=== PATIENT | female | born 1990 | race Caucasian/White ===

== ENCOUNTER 2019-08-01 17:15 | Emergency (ER) | payer OTHER ==
[2019-08-01 17:56] LABS: BLOOD UREA NITROGEN,BUN 13 mg/dL (7.0-18.0); CARBON DIOXIDE,CO2 26.5 mmol/L (21.0-32.0); CHLORIDE,CL 103 mmol/L (98-107); GLUCOSE RANDOM 93 mg/dL (74-106); POTASSIUM,K 3.4 mmol/L (3.5-5.1); SODIUM,NA 140 mmol/L (136-145)
--- NOTE | 2019-08-01 18:19 | EDM.PDOC ---
ED HPI GENERAL MEDICAL PROBLEM - General Chief Complaint: Chest Pain Stated Complaint: DIZZY Time Seen by Provider: 08/01/19 17:25 Source of Information: Reports: Patient History Limitations: Reports: No Limitations - History of Present Illness INITIAL COMMENTS - FREE TEXT/NARRATIVE: Presents reporting chest pain. Patient states for the last 1-2 weeks she has been having chest pain off and on. She made an appointment in the clinic for the upcoming Friday. However, today about 2 hours ago she became dizzy and nauseated. She states the chest pain is primarily only when lying down and outlines an area in a triangle over the midsternum. There is no associated shortness of breath, cough or tenderness and the pain does not radiate. The patient states that she has a history of lupus which has been well-controlled and does not require medications. She also has what sounds like a history since of a septal defect which has been completely asymptomatic. She was planning on getting that repaired after the of her child two years ago but has not got to it. - Related Data Allergies Allergy/AdvReac Type Severity Reaction Status Date / Time Penicillins Allergy Hives Verified 08/01/19 17:18 Home Meds: Home Meds Aspirin 81 mg PO DAILY 08/01/19 [History] Past Medical History HEENT History: Reports: Impaired Vision Cardiovascular History: Reports: Congenital Septal Defect [employer] History: Reports: Endocrine/Metabolic History: Reports: Other (See Below) Other Endocrine/Metabolic History: Lupus - Infectious Disease History Infectious Disease History: Reports: None Social & Family History - Family History Family Medical History: Noncontributory - Tobacco Use Smoking Status *Q: Never Smoker Second Hand Smoke Exposure: No - Caffeine Use Caffeine Use: Reports: None - Recreational Drug Use Recreational Drug Use: No ED ROS GENERAL - Review of Systems Review Of Systems: Comprehensive ROS is negative, except as noted in HPI. ED EXAM, GENERAL - Physical Exam Exam: See Below Exam Limited By: No Limitations General Appearance: Alert, No Apparent Distress Ears: Normal External Exam Nose: Normal Inspection Throat/Mouth: Normal Inspection Head: Atraumatic, Normocephalic Neck: Normal Inspection Respiratory/Chest: No Respiratory Distress, Lungs Clear, Normal Breath Sounds, Chest Non-Tender Cardiovascular: Normal Peripheral Pulses, Regular Rate, Rhythm, No Edema, No Gallop, No JVD, No Murmur, No Rub GI/Abdominal: Soft, No Distention Neurological: Alert, Oriented, CN II-XII Intact, No Motor/Sensory Deficits Psychiatric: Normal Affect, Normal Mood Skin Exam: Warm, Dry, Intact, Normal Color, No Rash Lymphatic: No Adenopathy Course - Vital Signs Last Recorded V/S: Last Vital Signs Temp 36.4 C 08/01/19 17:19 Pulse 85 08/01/19 17:19 Resp 18 08/01/19 17:19 BP 147/89 H 08/01/19 17:19 Pulse Ox 98 08/01/19 17:19 Orthostatic Blood Pressure [ 133/83 Standing] Orthostatic Blood Pressure [ 123/73 Sitting] Orthostatic Blood Pressure [ 124/66 Supine] - Orders/Labs/Meds Orders: Active Orders 24 hr Category Date Time Status EKG Documentation Completion [RC] STAT Care 08/01/19 17:38 Active Labs: Laboratory Tests 08/01/19 08/01/19 08/01/19 Range/Units 17:20 17:20 17:49 WBC 3.29 L (4.0-11.0) K/uL RBC 4.57 (4.30-5.90) M/uL Hgb 12.6 (12.0-16.0) g/dL Hct 37.1 (36.0-46.0) % MCV 81.2 (80.0-98.0) fL MCH 27.6 (27.0-32.0) pg MCHC 34.0 (31.0-37.0) g/dL RDW Std Deviation 40.7 (28.0-62.0) fl RDW Coeff of Idania 14 (11.0-15.0) % Plt Count 209 (150-400) K/uL MPV 9.80 (7.40-12.00) fL Neut % (Auto) 54.2 (48.0-80.0) % Lymph % (Auto) 32.8 (16.0-40.0) % Coke % (Auto) 9.4 (0.0-15.0) % Eos % (Auto) 3.0 (0.0-7.0) % Baso % (Auto) 0.6 (0.0-1.5) % Neut # (Auto) 1.8 (1.4-5.7) K/uL Lymph # (Auto) 1.1 (0.6-2.4) K/uL Coke # (Auto) 0.3 (0.0-0.8) K/uL Eos # (Auto) 0.1 (0.0-0.7) K/uL Baso # (Auto) 0.0 (0.0-0.1) K/uL Nucleated RBC % 0.0 /100WBC Nucleated RBCs # 0 K/uL Sodium 140 (136-145) mmol/L Potassium 3.4 L (3.5-5.1) mmol/L Chloride 103 (98-107) mmol/L Carbon Dioxide 26.5 (21.0-32.0) mmol/L BUN 13 (7.0-18.0) mg/dL Creatinine 0.7 (0.6-1.0) mg/dL Est Cr Clr Drug Dosing 109.59 mL/min Estimated GFR (MDRD) > 60.0 ml/min Glucose 93 (74-106) mg/dL Calcium 9.1 (8.5-10.1) mg/dL Total Bilirubin 0.2 (0.2-1.0) mg/dL AST 17 (15-37) IU/L ALT 27 (14-63) IU/L Alkaline Phosphatase 77 (46-116) U/L Total Protein 9.2 H (6.4-8.2) g/dL Albumin 3.7 (3.4-5.0) g/dL Globulin 5.5 H (2.6-4.0) g/dL Albumin/Globulin Ratio 0.7 L (0.9-1.6) Urine HCG, Qual NEGATIVE (NEGATIVE) Departure - Departure Time of Disposition: 18:21 Disposition: Home, Self-Care 01 Condition: Good Clinical Impression: Costochondritis Referrals: PCP,None [Primary Care Provider] - [facility] [Outside] Ivan Pedraza MD [Physician] - Forms: ED Department Discharge Additional Instructions: 1. follow-up with your primary care provider as previously scheduled on Friday. 2. Get a referral to cardiology. Dr. Rivas, garage helper at [facility] for further eval of your septal defect. 3. Ibuprofen 2 tabs three times daily or Aleve 2 am and 2 pm as needed just until seen in primary care. Avoid overuse of NSAIDS. Sepsis Event Note - Evaluation Sepsis Screening Result: No Definite Risk - Focused Exam Vital Signs: Vital Signs Temp Pulse Resp BP Pulse Ox 08/01/19 17:19 36.4 C 85 18 147/89 H 98 Date Exam was Performed: 08/01/19 Time Exam was Performed: 19:14 - My Orders Last 24 Hours: My Active Orders 08/01/19 17:38 EKG Documentation Completion [RC] STAT - Assessment/Plan Last 24 Hours: My Active Orders 08/01/19 17:38 EKG Documentation Completion [RC] STAT
--- NOTE | 2019-08-01 18:40 | CR ---
Chest: 2 views of the chest were obtained. Comparison: No previous chest x-ray. Heart size slightly generous. Lungs are clear. Bony structures are unremarkable for the patient's age. Impression: 1. Heart size is slightly generous. Please make sure patient has no murmur. 2. Nothing acute is otherwise seen on 2 view chest x-ray. Diagnostic code #2 This report was dictated in [place] Standard Time
== END 2019-08-01 19:35 | disposition home or self-care (01) ==
LOC: MW.ED 17:15
DX: M94.0 Chondrocostal junction syndrome [Tietze] (principal); Z88.0 Allergy status to penicillin; Z79.82 Long term (current) use of aspirin
CPT/HCPCS: 36415; 71046; 71046-26; 80053; 81025; 85025; 93005; 99283; 99285-25